=== PATIENT | female | born 1990 | race Caucasian/White ===

== ENCOUNTER 2018-02-19 11:04 | Emergency (ER) | payer OTHER ==
[~2018-02-19] VITALS: Ht 162.6 cm; Wt 59.1 kg
[~2018-02-19 11:04] MED LIST: MOTRIN 800800 MG/TAB PO; PERCOCET 325 MG1 TA2 PO; PRENATAL1 TA2 PO; PRENATAL1 TA7 PO
[2018-02-19 11:10] VITALS: TEMP 97.7
[2018-02-19 11:45] LABS: COLLECTION METHOD CATHETER
[2018-02-19 11:48] LABS: BASO % 0.3 % (0.0-2.0); EOS # 0.1 (0.0-0.7); EOS % 1.4 % (0-4.0); GRAN # 4.2 (1.4-6.5); GRAN % 72.8 % (42.2-75.2); HEMOGLOBIN 11.5 g/dl (12.5-16.0); LYMPH # 1.1 (1.2-3.4); LYMPH % 18.8 % (20.0-51.0); MEAN CELL VOLUME 80 fl (80.0-100.0); MEAN CORPUSCULAR HEMOGLOBIN 25 pg (27.0-31.0); MEAN CORPUSCULAR HGB CONC 32 g/dl (33.0-37.0); MEAN PLATELET VOLUME 10.5 fl (7.4-10.4); MONO # 0.4 (0.1-0.6); MONO % 6.5 % (1.7-9.3); PLATELET COUNT 272 K/mm3 (130-400); RED BLOOD COUNT 4.54 M/mm3 (4.10-5.30); REDCELL DISTRIBUTION WIDTH-CV 16.5 % (11.5-14.5)
[2018-02-19 11:49] LABS: HEMATOCRIT 36.3 % (37.0-47.0)
[2018-02-19 11:58] LABS: ALBUMIN 4.1 gm/dL (3.5-5.0); BILIRUBIN,TOTAL 0.9 mg/dL (0.0-1.0); CALCIUM 8.7 mg/dL (8.4-10.2); CREATININE, serum 0.58 mg/dL (0.52-1.25); POTASSIUM 4.1 mmol/L (3.4-5.0); TOTAL PROTEIN 7.8 gm/dL (6.4-8.2)
[2018-02-19 12:00] LABS: PH 7 (5-8); URINE APPEARANCE Clear; URINE BACTERIA None Seen /hpf; URINE BILIRUBIN Negative (NEGATIVE); URINE BLOOD Negative (NEGATIVE); URINE COLOR Yellow; URINE GLUCOSE Negative (NEGATIVE); URINE KETONE Negative (NEGATIVE); URINE LEUKOCYTE ESTERASE Negative (NEGATIVE); URINE NITRATE Negative (NEGATIVE); URINE PROTEIN(semi-quant) Negative (NEGATIVE); URINE RBC None Seen /hpf; URINE UROBILINOGEN Negative (NEGATIVE)
[2018-02-19 13:05] VITALS: BP 101/69
[2018-02-19 13:20] VITALS: PULSE 80
== END 2018-02-19 13:20 | disposition home or self-care (01) ==
LOC: COL.ER 11:04
PROVIDERS: Physician Assistant
DX: N94.6 Dysmenorrhea, unspecified (principal)
CPT/HCPCS: J7030

== ENCOUNTER 2020-08-27 19:33 | Outpatient (CLI) | payer OTHER ==
[~2020-08-27] VITALS: Ht 165.1 cm; Wt 78.2 kg
--- NOTE | 2020-08-27 19:45 | NUR ---
1943 G4L2 35.1 WEEK GEST TO LR6 WITH C/O CONTRACTIONS ALL DAY AND HEADACHE MOST OF THE DAY UNRELIEVED WITH TYLENOL AND RATED 8/10 ON THE PAIN SCALE. STATES LAST TOOK TYLENOL AT 1730. EFM ON. UTERUS PALPATED WITH C/O CONTRACTION VERY SOFT. ADM ASSESSMENT COMPLETED. B/P ON ADM 127/79.
[2020-08-27 19:50] VITALS: BP 127/79; PULSE 106; TEMP 98.9
[2020-08-27] MEDS ORDERED: PRENATAL TABLET PO (19:56)
[2020-08-27] MEDS ORDERED: TYLENOL 325MG325 MG PO (19:57)
[2020-08-27 19:58] VITALS: BP 127/79; PULSE 106; TEMP 98.9
[2020-08-27 20:10] VITALS: BP 123/75; PULSE 92
[2020-08-27 20:55] VITALS: BP 123/75; PULSE 88
--- NOTE | 2020-08-27 21:00 | NUR ---
2100 SVE WITH NO CERVICAL CHANGE. HEADACHE REMAINS BUT PT FEELS OKAY TO GO HOME NOW. DR HAM NOTIFIED AND REPORT GIVEN. ORDER FOR DISMISSAL RECEIVED. 2109 HOME WITH INSTRUCTIONS.
== END 2020-08-27 21:20 | disposition home or self-care (01) ==
LOC: LDRO 19:33
DX: O62.9 Abnormality of forces of labor, unspecified (principal); O99.891 Other specified diseases and conditions complicating pregnancy; R51.9 Headache, unspecified; Z3A.35 35 weeks gestation of pregnancy

== ENCOUNTER 2020-09-13 03:28 | Outpatient (CLI) | payer OTHER ==
[~2020-09-13] VITALS: Ht 165.1 cm; Wt 82.3 kg
[~2020-09-13 03:28] MED LIST changes: +PRENATAL TABLET PO; +TYLENOL 325MG325 MG PO
--- NOTE | 2020-09-13 03:30 | NUR ---
Ambulatory to unit for labor assessment, accompanied by spouse. Oriented to room, monitor, plan of care. Pt reports contractions "off and on all evening, and then it woke me up" SVE 1cm/50/-3.
[2020-09-13 03:40] VITALS: BP 121/76; PULSE 111; TEMP 98.3
[2020-09-13 04:50] VITALS: BP 117/73; PULSE 97
--- NOTE | 2020-09-13 04:50 | NUR ---
Repeat SVE with no changes noted, no loss of fluid or bloody show. Findings discussed with pt who states "I'm ok with going home."
== END 2020-09-13 05:20 | disposition home or self-care (01) ==
LOC: LDRO 03:28
DX: O62.9 Abnormality of forces of labor, unspecified (principal); Z3A.37 37 weeks gestation of pregnancy

== ENCOUNTER 2020-09-16 21:46 | Outpatient (CLI) | payer OTHER ==
[~2020-09-16] VITALS: Ht 165.1 cm; Wt 83.2 kg
--- NOTE | 2020-09-16 22:00 | NUR ---
Pt arrived on unit ambulatory and escorted by with complaints of contractions every 5-7 minutes starting this evening. Pt reports some leaking/discharge. Pt denies any vaginal bleeding and reports normal movement. EFM and toco monitors started. SVE by this RN /2 with negative amniotrace. Vital signs WNL. Dr. Mcginnis on the unit. Information reviewed and FHR tracing reviewed. Labor assessment orders received.
[2020-09-16 22:02] VITALS: BP 126/88; PULSE 116; TEMP 98.6
[2020-09-17] VITALS: BP 119/80; PULSE 96
--- NOTE | 2020-09-17 00:10 | NUR ---
SVE by this RN with no change . Orders for discharge home received. Information reviewed with pt and at the bedside. Both verbalized an understanding, agreed with the plan and state no questions at this time.
== END 2020-09-17 00:26 | disposition home or self-care (01) ==
LOC: LDRO 21:46 → LDR 22:30 → LDRO 09-17 00:26
DX: Z34.93 Encounter for supervision of normal pregnancy, unspecified, third trimester (principal); Z3A.38 38 weeks gestation of pregnancy
CPT/HCPCS: OP

== ENCOUNTER 2020-09-17 14:01 | Inpatient (IN) | payer OTHER ==
[~2020-09-17] VITALS: Ht 165.1 cm; Wt 83.2 kg
[2020-09-17] VITALS (25 sets, daily range): BP systolic 100–139; BP diastolic 55–92; PULSE 86–122; TEMP 99.3–99.4
--- NOTE | 2020-09-17 14:05 | NUR ---
Pt arrives on unit via wheelchair with spouse. States ctx x 1 day that have worsened over night. Denies LOF, vaginal bleeding and reports GFM. Changed into clean gown. EFM and toco applied. VSS. SVE per this RN 4-5/80/-2. Oral temp noted at 99.4 F with MHR in 100s. Admission assessment completed. Attempt to notify Dr. Mcginnis. LMTCB. Pt updated on POC. Bed locked in low position. Call light within reach. No questions or concerns at this time.
[2020-09-17 15:08] LABS: BASO % 0.2 % (0.0-2.0); EOS # 0.1 (0.0-0.7); EOS % 0.5 % (0-4.0); GRAN # 12.5 (1.4-6.5); GRAN % 80.2 % (42.2-75.2); LYMPH % 12.7 % (20.0-51.0); MEAN CELL VOLUME 73 fl (80.0-100.0); MEAN CORPUSCULAR HGB CONC 30 g/dl (33.0-37.0); MEAN PLATELET VOLUME 11.3 fl (7.4-10.4); MONO # 0.8 (0.1-0.6); MONO % 5.1 % (1.7-9.3); PLATELET COUNT 286 K/mm3 (130-400); RED BLOOD COUNT 4.08 M/mm3 (4.10-5.30); REDCELL DISTRIBUTION WIDTH-CV 18.4 % (11.5-14.5)
[2020-09-17 15:11] LABS: HEMATOCRIT 29.7 % (37.0-47.0); HEMOGLOBIN 8.8 g/dl (12.5-16.0); MEAN CORPUSCULAR HEMOGLOBIN 22 pg (27.0-31.0)
--- NOTE | 2020-09-17 15:20 | NUR ---
Pt sitting upright for epidural placement. Difficulty tracing FHR due to maternal position. RN at bedside adjusting monitors. FHR audible.
--- NOTE | 2020-09-17 18:31 | NUR ---
183 SROM WITH CL FLUID. 8 CM. WITH LOTS OF RECTAL PRESSURE 1834 DR JARRETT NOTIFIED OF SROM AND SVE.
--- NOTE | 2020-09-17 18:55 | NUR ---
1855 C/O RECTAL PRESSURE. REMAINS 8 CM -2 STATION. TURNED TO RIGHT LATERAL.
--- NOTE | 2020-09-17 19:00 | NUR ---
1900 STATES HAVING A LOT OF RECTAL PRESSURE. SVE 10/+[address] JARRETT NOTIFIED TO COME TO DELIVERY. PT STATES CANNOT STOP PUSHING. READIED FOR DELIVERY 1903 DELIVERY VIABLE FE PER RN. IV CONTS TO INFUSE. CORD BLOOD OBTAINED 1909 DR JARRETT HERE. 1911 DELIVERY OF PLACENTA. INTACT PERINEUM. REMAINS IN LR5 FOR RECOVERY.
--- NOTE | 2020-09-17 21:45 | NUR ---
2145 COVID SWAB DONE.
--- NOTE | 2020-09-17 22:40 | NUR ---
2240 EPID CATH DCD. UP TO BR WITH ASSIST. VOIDED 800CC. PERICARE DONE. TO ROOM 218 PER W\C. INT DCD. 2250 TO NSY PER W/C TO OBSERVE BABY BATH. THANG WELL.
[2020-09-18 01:30] VITALS: BP 116/66; PULSE 100; TEMP 98.6
--- NOTE | 2020-09-18 06:20 | NUR ---
REPORT RECEIVED FROM MARITZA OLSEN RN CARE TAKEN OVER BY THIS RN.
[2020-09-18 07:27] VITALS: BP 122/73; PULSE 96; TEMP 98.1
--- NOTE | 2020-09-18 10:35 | NUR ---
Initial visit; Parents thanked [employer] for offering congratulations and God's blessings for the of their daughter. [employer] thanked family for choosing [facility].
[2020-09-18 12:02] VITALS: BP 117/67; PULSE 94; TEMP 98.2
[2020-09-18 15:59] VITALS: BP 116/78; PULSE 86; TEMP 98.6
[2020-09-18 19:43] VITALS: BP 123/78; PULSE 98; TEMP 98.4
== END 2020-09-18 22:15 | disposition home or self-care (01) | DRG 807 ==
LOC: LDRO 14:01 → LDR 14:06 → OB 14:06
PROVIDERS: ADMIT Obstetrics & Gynecology
PROC: 10E0XZZ Delivery of Products of Conception, External Approach (ICD-10-PCS; principal; 2020-09-17)
DX: O99.824 Streptococcus B carrier state complicating childbirth (principal); Z37.0 Single live birth; O99.02 Anemia complicating childbirth; D64.9 Anemia, unspecified; Z3A.38 38 weeks gestation of pregnancy
CPT/HCPCS: J2540; J2590; J7120

== ENCOUNTER 2021-05-03 12:33 | Emergency (ER) | payer OTHER ==
[~2021-05-03] VITALS: Ht 165.1 cm; Wt 68.2 kg
[2021-05-03 14:25] LABS: GRAN # 1.2 (1.4-6.5); GRAN % 59.4 % (42.2-75.2); LYMPH # 0.7 (1.2-3.4); LYMPH % 33.3 % (20.0-51.0); MEAN CELL VOLUME 72 fl (80.0-100.0); MEAN CORPUSCULAR HGB CONC 30 g/dl (33.0-37.0); MEAN PLATELET VOLUME 10.4 fl (7.4-10.4); MONO # 0.1 (0.1-0.6); MONO % 6.3 % (1.7-9.3); PLATELET COUNT 218 K/mm3 (130-400); REDCELL DISTRIBUTION WIDTH-CV 16.8 % (11.5-14.5)
[2021-05-03 14:27] LABS: HEMATOCRIT 32.2 % (37.0-47.0); HEMOGLOBIN 9.7 g/dl (12.5-16.0); MEAN CORPUSCULAR HEMOGLOBIN 22 pg (27.0-31.0)
[2021-05-03 14:37] LABS: BILIRUBIN,TOTAL 0.2 mg/dL (0.0-1.0); CALCIUM 8.3 mg/dL (8.4-10.2); CREATININE, serum 0.56 (0.52-1.25); POTASSIUM 3.7 mmol/L (3.4-5.0); TOTAL PROTEIN 7.3 gm/dL (6.4-8.2)
[2021-05-03 14:38] LABS: COLLECTION METHOD CLEAN CATCH
[2021-05-03 14:43] LABS: MUCOUS Present /lpf; PH 7 (5-8); SQUAMOUS EPITHELIAL 0-2 /hpf; URINE APPEARANCE Clear; URINE BACTERIA None Seen /hpf; URINE BILIRUBIN Negative (NEGATIVE); URINE BLOOD Negative (NEGATIVE); URINE COLOR Yellow; URINE GLUCOSE Negative (NEGATIVE); URINE KETONE Trace (NEGATIVE); URINE LEUKOCYTE ESTERASE Negative (NEGATIVE); URINE NITRATE Negative (NEGATIVE); URINE PROTEIN(semi-quant) Negative (NEGATIVE); URINE RBC 0-2 /hpf; URINE UROBILINOGEN Negative (NEGATIVE)
[2021-05-03] MEDS ORDERED: ZOFRAN ODT4 MG PO (16:02)
[2021-05-03] MEDS ORDERED: NORCO 325 MG-51 TAB PO (16:02)
[2021-05-03] MEDS ORDERED: ZITHROMAX Z PA250 MG PO (16:02)
[2021-05-03 16:11] VITALS: BP 100/67; PULSE 89; TEMP 102.6
== END 2021-05-03 16:17 | disposition home or self-care (01) ==
LOC: COL.ER 12:33
PROVIDERS: Personal Emergency Response Attendant
DX: U07.1 COVID-19 (principal)
CPT/HCPCS: J0696; J2405; J3010; J7030